=== PATIENT | male | born 1975 ===

== ENCOUNTER 2017-11-21 22:33 | Emergency (ER) | payer SELFPAY ==
[2017-11-21 22:33] VITALS: BMI 46.7
[2017-11-21] MEDS ORDERED: DiphenhydrAMINE 50 mg/ml Inj IVP STA (23:21)
[2017-11-21] MEDS ORDERED: Sodium Chloride 0.9% 1,000 ML IV STA (23:22)
--- NOTE | 2017-11-21 23:24 | ED PDOC ---
HPI: Headache Time Seen by Provider: 11/21/17 22:47 Chief Complaint (Nursing): Headache Chief Complaint (Provider): ANDRADE History Per: Patient History/Exam Limitations: no limitations Onset/Duration Of Symptoms: Days (1) Additional Complaint(s): Pt reports frontal ANDRADE X 1 day, associated with nausea and photophobia, took Naprosyn and Oxycodone at home without relief. Denies fever, neck pain, vomiting, visual changes, paresthesias, weakness. Past Medical History Reviewed: Nursing Documentation, Vital Signs Vital Signs: Last Vital Signs Temp 98.4 F 11/21/17 22:37 Pulse 100 H 11/21/17 22:37 Resp 18 11/21/17 22:37 BP 130/84 11/21/17 22:37 Pulse Ox 97 11/21/17 22:37 - Medical History PMH: Back Problems, Gall Bladder Disease, HTN, Pancreatitis - Surgical History Surgical History: Cholecystectomy - Family History Family History: States: Unknown Family Hx - Immunization History Hx Tetanus Toxoid Vaccination: No Hx Influenza Vaccination: No Hx Pneumococcal Vaccination: No - Home Medications Home Medications: Ambulatory Orders Medication Instructions Recorded Acetaminophen [Tylenol 325mg tab] 650 mg PO Q6 #30 tab 09/11/17 Fluticasone Nasal [Flonase] 1 spr NS BID #1 bottle 09/11/17 Metoprolol Succinate [Toprol XL] 50 mg PO DAILY 09/11/17 Acetaminophen/Butalbital/Caf 1 - 2 tab PO Q6 PRN #12 tab 11/22/17 [Fioricet] - Allergies Allergies/Adverse Reactions: Allergies Allergy/AdvReac Type Severity Reaction Status Date / Time UNKNOW ALLERGEN Allergy Severe ANAPHYLAXIS Uncoded 04/22/17 13:47 Review of Systems Constitutional: Negative for: Fever, Chills Eyes: Positive for: Other (Photophobia). Negative for: Vision Change Cardiovascular: Negative for: Chest Pain Respiratory: Negative for: Cough, Shortness of Breath Gastrointestinal: Positive for: Nausea. Negative for: Vomiting, Abdominal Pain Skin: Negative for: Rash, Lesions Neurological: Positive for: Headache, Dizziness. Negative for: Weakness, Numbness, Incoordination, Confusion, Seizures, Altered Mental Status Physical Exam - Reviewed Nursing Documentation Reviewed: Yes Vital Signs Reviewed: Yes - Physical Exam Appears: Positive for: Uncomfortable Head Exam: Positive for: ATRAUMATIC, NORMAL INSPECTION, NORMOCEPHALIC Skin: Positive for: Normal Color, Warm, Dry Eye Exam: Positive for: Normal appearance, EOMI, PERRL Neck: Positive for: Normal, Painless ROM, Supple Cardiovascular/Chest: Positive for: Regular Rate, Rhythm Respiratory: Positive for: Normal Breath Sounds Extremity: Positive for: Normal ROM Neurologic/Psych: Positive for: 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 Negative for: Motor/Sensory Deficits, Aphasia, Facial Droop - ECG O2 Sat by Pulse Oximetry: 97 Medical Decision Making Medical Decision Makin yo male with ANDRADE. - CT head - Benadryl - Phenergan - IVF Disposition - Clinical Impression Clinical Impression: Headache - Disposition Disposition: Transfer of Care Disposition Time: 00:00 Condition: STABLE Prescriptions: Acetaminophen/Butalbital/Caf [Fioricet] 1 - 2 tab PO Q6 PRN #12 tab PRN Reason: Headache Instructions: Tension Headache Forms: [facility] (Kyrgyz) Patient Signed Over To: Dilan Jensen
[2017-11-21] MEDS ORDERED: DiphenhydrAMINE 50 mg/ml Inj ONE (23:27)
--- NOTE | 2017-11-22 00:09 | ED PDOC ---
- ECG O2 Sat by Pulse Oximetry: 97 (RA) Pulse Ox Interpretation: Normal Medical Decision Making Medical Decision Making: Time: --00:00 Plan: --Crisis and Reevaluation Reassess --Patient signed out to the provider by Dr. Wynne pending crisis and reevaluation. 00:10 EXAM: CT Head Without Intravenous Contrast EXAM DATE/TIME: 11/21/2017 11:21 PM CLINICAL HISTORY: 42 years old, male; Pain and signs and symptoms; Dizziness; Headache; Headache not specified; Additional info: Frontal ANDRADE TECHNIQUE: Axial computed tomography images of the head/brain without intravenous contrast. All CT scans at this facility use one or more dose reduction techniques, viz.: automated exposure control; ma/kV adjustment per patient size (including targeted exams where dose is matched to indication; i.e. head); or iterative reconstruction technique. Coronal and sagittal reformatted images were created and reviewed. COMPARISON: There are no prior studies for comparison. FINDINGS: Artifacts: There is streak artifact from a necklace. Brain: Ventricles are normal in size and configuration. There is no midline shift. There are no intraaxial or extra-axial mass lesions or areas of hemorrhage. There are no abnormal fluid collections. Martino-white differentiation is maintained. Ventricles: See above. Bones: Cranial vault is intact. Soft tissues: unremarkable Sinuses: There is no acute sinusitis. Ears and mastoids: Middle ears and mastoids are unremarkable Orbits: Orbital contents are unremarkable. IMPRESSION: No acute intracranial abnormality 01:00 patient reports improvement of symptoms, denies any further complaints and is stable for discharge home. Diagnosis: Headache Scribe Attestation: Documented by Lefty Sharp acting as a scribe for Dilan Jensen MD. Provider Attestation: All medical record entries made by the Scribe were at my direction and personally dictated by me. I have reviewed the chart and agree that the record accurately reflects my personal performance of the history, physical exam, medical decision making, and the department course for this patient. I have also personally directed, reviewed, and agree with the discharge instructions and disposition. Disposition - Clinical Impression Clinical Impression: Headache - POA Present On Arrival: None - Disposition Disposition: Routine/Home Disposition Time: 01:00 Condition: STABLE Prescriptions: Acetaminophen/Butalbital/Caf [Fioricet] 1 - 2 tab PO Q6 PRN #12 tab PRN Reason: Headache Instructions: Tension Headache Forms: [facility] (Nepalese)
[2017-11-22 02:11] VITALS: PULSE 80; RESP 16
[2017-11-22 06:05] VITALS: BP 112/60; TEMP 97.6
[2017-11-24 13:06] VITALS: O2SAT 97
== END 2017-11-22 06:05 | disposition home or self-care (01) ==
LOC: H.ER 22:33
DX: R51 Headache (principal); I10 Essential (primary) hypertension
CPT/HCPCS: 70450; 96365; 96375; 99285; J1200; J2550; J7040